=== PATIENT | male | born 1945 | race Caucasian/White ===

== ENCOUNTER → 2017-11-18 | Outpatient (CLI) | payer MEDICARE, BC ==
--- NOTE | 2017-11-19 07:58 | XCELERA REPORT ---
[address] [address] Lower Extremity Venous Evaluation Name: DEEPTI GARCIAS Age: 72 yrs Gender: Male : 1945 Patient Status: Outpatient Patient Location: Study Date: 11/18/2017 01:15 PM Procedure: Color flow and duplex imaging of the veins of the right lower extremity as well as the left Common Femoral vein. Reason For Study: RLE PAIN Ordering Physician: HANNAH LAZO Performed By: Deepika Jane Right Sided Venous Evaluation Leg subcutaneous edema. Distal Femoral vein not well seen, due to edema. Normal vessel filling wall to wall, compression and augmentation as well as Colour flow down to the infrageniculate veins. Interpretation Summary No duplex evidence of DVT or obstruction in the right lower extremity nor in the left Common Femoral vein. Right leg edema, as noted. : HANNAH LAZO > Reynaldo Gonzales
== END ==
LOC: SP 12:58
PROVIDERS: ATTEND Physician Assistant
DX: M79.661 Pain in right lower leg (principal)
CPT/HCPCS: 93971

== ENCOUNTER → 2018-02-02 | Outpatient (CLI) | payer MEDICARE, BC ==
--- NOTE | 2018-02-02 16:28 | XCELERA REPORT ---
[address] [address] Lower Extremity Venous Evaluation Name: DEEPTI GARCIAS Age: 72 yrs Gender: Male : 1945 Patient Status: Outpatient Patient Location: Study Date: 02/02/2018 11:18 AM Procedure: Color flow and duplex imaging of the veins of the left lower extremity as well as the right Common Femoral vein. Reason For Study: LLE PAIN Ordering Physician: HANNAH LAZO Performed By: Rocael Guillen Right Sided Venous Evaluation The right common femoral vein is fully compressible. Spontaneous and phasic flow is present in the right common femoral vein. Left Sided Venous Evaluation Normal vessel filling wall to wall, compression and augmentation as well as Colour flow down to the infrageniculate veins. Interpretation Summary No duplex evidence of DVT or obstruction in the left lower extremity nor in the right Common Femoral vein. : HANNAH LAZO > Reynaldo Gonzales
== END ==
LOC: SP 11:09
PROVIDERS: ATTEND Physician Assistant
DX: I82.402 Acute embolism and thrombosis of unspecified deep veins of left lower extremity (principal)
CPT/HCPCS: 93971